=== PATIENT | female | born 1960 | race African-American/Black ===

== ENCOUNTER 2019-12-10 15:09 | Emergency (ER) | payer OTHER ==
[~2019-12-10] VITALS: Ht 160 cm; Wt 95.2 kg
[2019-12-10] MEDS ORDERED: Roxicodone5 MG PO (17:31)
== END 2019-12-10 18:09 | disposition home or self-care (01) ==
LOC: ER 15:09
DX: S09.90XA Unspecified injury of head, initial encounter (principal); S16.1XXA Strain of muscle, fascia and tendon at neck level, initial encounter; S29.012A Strain of muscle and tendon of back wall of thorax, initial encounter; S39.012A Strain of muscle, fascia and tendon of lower back, initial encounter; S80.02XA Contusion of left knee, initial encounter; S80.01XA Contusion of right knee, initial encounter; E11.9 Type 2 diabetes mellitus without complications; I10 Essential (primary) hypertension; V49.60XA Unspecified car occupant injured in collision with unspecified motor vehicles in traffic accident, initial encounter
CPT/HCPCS: 70450; 72070; 72100; 72125; 73562-LT; 73562-RT; 99284-25